=== PATIENT | female | born 1985 | race Caucasian/White ===

== ENCOUNTER 2016-11-20 10:56 | Emergency (ER) | payer OTHER, MEDICAID ==
[~2016-11-20] VITALS: Ht 165.1 cm; Wt 59.6 kg
[~2016-11-20 10:56] MED LIST: CLON1PAT3; CLON1TAB PO; CLONIPINE; HYDR1TAB12; HYDR1TAB12 PO; LUNESTA; PROZAC; VENL37.52 PO; ZOLP10TA PO
[2016-11-20] MEDS ORDERED: SODIUM CHLORIDE 0.9% 1,000 ML IV ONE (11:13)
[2016-11-20] MEDS ORDERED: SODIUM CHLORIDE 0.9% 1,000ML IVBOLUS ONE (11:30)
[2016-11-20] MEDS ORDERED: ONDANSETRON 2MG/ML, 2ML IVPush ONE (11:30)
[2016-11-20] MEDS ORDERED: SODIUM CHLORIDE FLUSH 10ML SYR IVF ONE (11:30)
[2016-11-20 11:54] LABS: ASPARTATE AMINO TRANSFERASE 32 U/L (15-37); BLOOD UREA NITROGEN 7 mg/dL (7-18)
[2016-11-20] MEDS ORDERED: ONDANSETRON 2MG/ML, 2ML ONE (12:04)
[2016-11-20 13:38] VITALS: BP 100/55
[2016-11-20] MEDS ORDERED: PREN1TAB60 PO (19:57)
[2016-11-20] MEDS ORDERED: METH40TA3 PO (19:57)
== END 2016-11-20 13:41 | disposition home or self-care (01) ==
LOC: ED 11:31
DX: N30.00 Acute cystitis without hematuria (principal); F11.10 Opioid abuse, uncomplicated; F19.10 Other psychoactive substance abuse, uncomplicated
CPT/HCPCS: 36415; 76805; 80053; 81001; 85025; 87086; 93005; 96361; 96374; 99285; J2405; J7030

== ENCOUNTER 2016-11-20 13:50 | Observation (INO) | payer OTHER, MEDICAID ==
[~2016-11-20] VITALS: Ht 165.1 cm; Wt 57.5 kg
[2016-11-20 14:30] VITALS: BP 110/64
[2016-11-20 14:43] LABS: DAU SCREEN DISCLAIMER
[2016-11-20] MEDS ORDERED: LACTATED RINGERS 1,000 ML IVBOLUS ONE (15:30)
[2016-11-20] MEDS ORDERED: CALCIUM CARBONATE 500 MG TAB.CHEW ONE ×2 (18:35→21:36)
[2016-11-20] MEDS: CALCIUM CARBONATE 500 MG TAB.CHEW PO PRN ×2 (18:38→21:38)
[2016-11-20] MEDS ORDERED: METH40TA3 PO (19:57)
[2016-11-20] MEDS ORDERED: PREN1TAB60 PO (19:57)
[2016-11-20 22:14] LABS: HIV 1&2 ANTIBODY SCREEN Nonreactive (Nonreactive); HIV-1 p24 ANTIGEN Nonreactive (Nonreactive)
== END 2016-11-20 22:03 | disposition home or self-care (01) ==
LOC: LDOP 13:50 → LDIP 16:27
PROVIDERS: ADMIT Student in an Organized Health Care Education/Training Program; ATTEND Student in an Organized Health Care Education/Training Program
DX: O26.893 Other specified pregnancy related conditions, third trimester (principal); R42 Dizziness and giddiness; O99.323 Drug use complicating pregnancy, third trimester; F11.90 Opioid use, unspecified, uncomplicated; Z3A.32 32 weeks gestation of pregnancy
CPT/HCPCS: 36415; 59025; 80307; 82239; 82731; 85027; 86592; 86703; 86762; 86850; 86900; 87086; 87210; 87340; 87491; 87591; 87808; 87899; 89060; 96360; 96361; G0378; J7120; G0435; Q0114

== ENCOUNTER 2017-06-15 23:20 | Emergency (ER) | payer MEDICAID, OTHER ==
[~2017-06-15] VITALS: Ht 165.1 cm; Wt 48.0 kg
[~2017-06-15 23:20] MED LIST changes: +METH40TA3 PO; +PREN1TAB60 PO
[2017-06-15 23:36] VITALS: BP 109/69
[2017-06-15] MEDS ORDERED: FAMOTIDINE 20 MG TABLET ONE (23:59)
[2017-06-16] MEDS ORDERED: DIPHENHYDRAMINE 25 MG CAPSULE ONE
[2017-06-16] MEDS ORDERED: FAMOTIDINE 20 MG TABLET PO ONE
[2017-06-16] MEDS ORDERED: DIPHENHYDRAMINE 25 MG CAPSULE PO ONE
== END 2017-06-16 01:33 | disposition home or self-care (01) ==
LOC: ED 23:59
DX: T78.3XXA Angioneurotic edema, initial encounter (principal); X58.XXXA Exposure to other specified factors, initial encounter; Y93.89 Activity, other specified; Y92.89 Other specified places as the place of occurrence of the external cause; Y99.8 Other external cause status
CPT/HCPCS: 99284; J7512; Q0163

== ENCOUNTER 2018-02-26 17:09 | Emergency (ER) | payer OTHER, MEDICAID ==
[~2018-02-26] VITALS: Ht 165.1 cm; Wt 47.0 kg
[2018-02-26 18:54] LABS: MICROSCOPIC AUTO
[2018-02-26 18:58] LABS: BASOPHILS # (AUTO) 0.03 x10^3/uL (0-0.1); BASOPHILS % (AUTO) 0 % (0-1); EOSINOPHILS # (AUTO) 0.02 x10^3/uL (0-0.4); EOSINOPHILS % (AUTO) 0 % (1-7); LYMPHOCYTES # (AUTO) 2.53 x10^3/uL (1-3.4); LYMPHOCYTES % (AUTO) 29 % (22-44); MD NO; MEAN CORPUSCULAR HEMOGLOBIN 31.3 pg (27.0-34.8); MEAN CORPUSCULAR HGB CONC 33.9 g/dL (32.4-35.8); MEAN CORPUSCULAR VOLUME 92.4 fL (80-100); MEAN PLATELET VOLUME 7.8 fL (7.4-10.4); MONOCYTES # (AUTO) 0.28 x10^3/uL (0.2-0.8); MONOCYTES % (AUTO) 3 % (2-9); NEUTROPHILS # (AUTO) 5.95 x10^3/uL (1.8-6.8); NEUTROPHILS % (AUTO) 68 % (42-75); PLATELET COUNT 288 x10^3/uL (130-400); RED BLOOD COUNT 4.18 x10^6/uL (3.82-5.3); RED CELL DISTRIBUTION WIDTH 12.5 % (9.6-15.2)
[2018-02-26 19:07] LABS: CULTURE INDICATED? YES
[2018-02-26 19:10] LABS: CHLORIDE 107 mmol/L (98-107)
[2018-02-26 19:11] LABS: ALANINE AMINOTRANSFERASE 50 U/L (12-78); ANION GAP 9 mmol/L (5-15); CALCIUM 8.7 mg/dL (8.5-10.1); CREATININE 0.66 mg/dL (0.55-1.02)
[2018-02-26 19:14] LABS: ALKALINE PHOSPHATASE 52 U/L (45-117); BILIRUBIN,TOTAL 1.3 mg/dL (0.2-1.0); TOTAL PROTEIN 7.2 g/dL (6.4-8.2)
[2018-02-26 20:24] VITALS: BP 101/77
== END 2018-02-26 20:27 | disposition home or self-care (01) ==
LOC: ED 17:28
DX: O23.10 Infections of bladder in pregnancy, unspecified trimester (principal); Z00.01 Encounter for general adult medical examination with abnormal findings; Z3A.00 Weeks of gestation of pregnancy not specified
CPT/HCPCS: 36415; 80053; 81001; 84702; 85025; 87086; 99284

== ENCOUNTER 2020-04-05 15:32 | Emergency (ER) | payer MEDICAID, OTHER ==
[~2020-04-05] VITALS: Ht 165.1 cm; Wt 47.1 kg
[~2020-04-05 15:32] MED LIST changes: -HYDR1TAB12; -HYDR1TAB12 PO; +HYDR1TAB13; +HYDR1TAB13 PO
[2020-04-05 15:37] VITALS: BP 109/59
--- NOTE | 2020-04-05 16:08 | NUR ---
RIVET TESTER: PT LEFT AMA
== END 2020-04-05 16:10 | disposition left against medical advice (07) ==
LOC: ED 16:04
DX: R10.9 Unspecified abdominal pain (principal); Z53.21 Procedure and treatment not carried out due to patient leaving prior to being seen by health care provider